=== PATIENT | male | born 1965 | race Hispanic/Latino ===

== ENCOUNTER 2017-05-27 09:41 | Emergency (ER) | payer OTHER, BC ==
[2017-05-27 09:41] VITALS: BMI 24.4
[2017-05-27 09:54] VITALS: BP 158/105; PULSE 66; RESP 18; TEMP 98.5; O2SAT 100
--- NOTE | 2017-05-27 10:59 | C.PDOC ---
History Of Present Illness SP FALL ON 05/24 CO PERSIST R ELBOW PAIN, EXAC NECK PAIN X SEV DAYS. PS TRIPPED, FELL ONTO R HAND AND R ELBOW, R HIP. AMBUL WO DIFF THROUGHOUT WEEKEND. R ELBOW PAIN ONLY W DIRECT PRESSURE. NO ASSOC WEAK/NUMB. PS SHOWERING ON 05/25, FELT "SUDDEN PRESSURE" HEAD/NECK WHILE TOWELING. HO C5 HERNIA. PS HASNT HAD NECK PAIN EPISODE "IN A LONG TIME", PRIOR PARESTHESIA RUE. NOW W RECUR R HAND PARESTHESIA. REFERRED FROM PHYSICAL THERAPY FOR EVAL. EXAM NONTOXIC NARD HEENT ATRAUM NECK NO CSPINE TEND AROM WO DIFF EXT RUE NO PAIN W SUPINATION; FULL FLEX/EXT WO PAIN OR DIFF. REPRODUC PAIN W DIRECT PRESSURE TO ELBOW. R HAND AROM WO DIFF, ATRAUM NO FOCAL TEND. R WRIST AROM WO DIFF, NONTEND NEURO INTACT SKIN INTACT - HPI Time Seen by Provider: 05/27/17 10:32 Chief Complaint (Nursing): Back Pain History Per: Patient History/Exam Limitations: no limitations Onset/Duration Of Symptoms: Persistent Injury Occurred (Timing): Days Ago: Past Medical History Reviewed: Historical Data, Nursing Documentation, Vital Signs Vital Signs: Last Vital Signs Temp 98.5 F 05/27/17 09:50 Pulse 66 05/27/17 09:50 Resp 18 05/27/17 09:50 BP 158/105 H 05/27/17 09:50 Pulse Ox 100 05/27/17 13:29 - Medical History PMH: Kidney Stones Surgical History: Cholecystectomy Family History: States: No Known Family Hx - Social History Hx Tobacco Use: No Hx Alcohol Use: Yes Hx Substance Use: No - Immunization History Hx Tetanus Toxoid Vaccination: No Hx Influenza Vaccination: Yes Hx Pneumococcal Vaccination: No Review Of Systems Except As Marked, All Systems Reviewed And Found Negative. Constitutional: Negative for: Fever Musculoskeletal: Positive for: Neck Pain, Other ((+) right elbow pain) Neurological: Negative for: Weakness, Numbness Physical Exam - Physical Exam Appears: Non-toxic, No Acute Distress Skin: Warm, Dry Head: Atraumatic, Normacephalic Oral Mucosa: Moist Neck: Normal ROM (w/o difficulty), Other (No Cspine tenderness) Respiratory: Normal Breath Sounds Extremity: Other (RUE - no pain with supination, full flex/ext w/o pain or difficully, reproducible pain with direct pressure to elbow. Right hand AROM w/ o difficulty, ATRAUM no focal tenderness. Right wrist AROM w/o difficulty, non tender) Pulses: Left Radial: Normal, Right Radial: Normal Neurological/Psych: Oriented x3, Normal Speech, Normal Motor ED Course And Treatment O2 Sat by Pulse Oximetry: 100 (RA) Pulse Ox Interpretation: Normal - Other Rad X-Ray - Cervical Spine X-Ray: Viewed By Me Interpretation: PROCEDURE: Cervical Spine Radiographs. HISTORY: Posttraumatic pain. COMPARISON: None. FINDINGS: BONES: Reversal of the anatomic lordosis with kyphosis, mild. DISC SPACES: Degenerative changes primarily disc space narrowing and non marginal osteophyte formation C5-6 and C6 -7. Uncovertebral hypertrophy at these levels. SOFT TISSUES: Calcifications within the posterior longitudinal ligament. . No prevertebral soft tissue swelling. OTHER FINDINGS: None. IMPRESSION: No acute findings related to/ accounting for the clinical presentation. Additional benign and/or incidental findings described above. . Concordant results with the preliminary interpretation rendered by the emergency department physician\\PA at the conclusion of the procedure. X-Ray - Right Elbow X-Ray: Viewed By Me, Read By Radiologist Interpretation: PROCEDURE: Radiographs of the right elbow. HISTORY: TRAUMA. COMPARISON: No prior. FINDINGS: BONES: Normal. No fracture. JOINTS: Normal. No osteoarthritis. SOFT TISSUES: Normal. JOINT EFFUSION: None. OTHER FINDINGS: None. IMPRESSION: Unremarkable radiographs of the right elbow. . Concordant results with the preliminary interpretation rendered by the emergency department physician\\PA at the conclusion of the procedure. - CT Scan/US CT - Cervical Spine Other Rad Studies (CT/US): Read By Radiologist, Radiology Report Reviewed CT/US Interpretation: CT cervical spine without IV contrast. Indication: Trauma. Comparison: None available. Technique: Axial computed tomography images were obtained of the cervical spine without the use of intravenous contrast. Coronal and sagittal reformatted images were created and reviewed. This CT exam was performed using 1 or more of the falling dose reduction techniques: Automated exposure control, adjustment of the MAA and/or kV according to patient size, and/or use of iterative reconstruction technique. Radiation dose: Total exam DLP = 451.92 MGy-cm. Findings: Straightening of the normal cervical lordosis may be related to muscle spasm or positioning. There is no evidence of acute fracture or subluxation. There is preserved alignment, vertebral body height, intervertebral disc spaces. The prevertebral soft tissues and spinolaminar lines appear intact. The lateral masses are preserved. The dens tip is intact. There is proper alignment of the lateral masses of C1 with the C2 vertebral body. Prominent lymph nodes throughout the neck, nonspecific. Included portions of the thyroid gland appear unremarkable. Included portions of lung apices appear clear. Impression: Straightening of the normal cervical lordosis may be related to muscle spasm or positioning. No evidence of acute fracture or subluxation. Prominent lymph nodes throughout the neck, nonspecific. Medical Decision Making Medical Decision Making: PLAN: * CT - Cervical Spine * X-Ray - Cervical Spine, Right Elbow * Decadron PO * Gabapentin PO * Tylenol PO Disposition Counseled Patient/Family Regarding: Studies Performed, Diagnosis, Need For Followup - Disposition Referrals: YOUR,PMD [Other] Disposition: HOME/ ROUTINE Disposition Time: 13:15 Condition: IMPROVED Prescriptions: Cyclobenzaprine [Flexeril] 10 mg PO TID #15 tab Gabapentin [Neurontin] 300 mg PO TID #30 cap Ibuprofen [Motrin] 600 mg PO Q6 #30 tab Instructions: Contusion in Adults (ED), Cervical Radiculopathy (ED) Forms: [employer] (Bulgarian), Work Excuse - Clinical Impression Clinical Impression: Cervical radiculopathy, Elbow contusion - Scribe Statement The provider has reviewed the documentation as recorded by the Juan Aibe Susie Brothers Provider Attestation: All medical record entries made by the Scribchelsi were at my direction and personally dictated by me. I have reviewed the chart and agree that the record accurately reflects my personal performance of the history, physical exam, medical decision making, and the department course for this patient. I have also personally directed, reviewed, and agree with the discharge instructions and disposition.
--- NOTE | 2017-05-27 13:10 | CT ---
CT cervical spine without IV contrast Indication: Trauma Comparison: None available. Technique: Axial computed tomography images were obtained of the cervical spine without the use of intravenous contrast. Coronal and sagittal reformatted images were created and reviewed. This CT exam was performed using 1 or more of the falling dose reduction techniques: Automated exposure control, adjustment of the MAA and/or kV according to patient size, and/or use of iterative reconstruction technique. Radiation dose: Total exam DLP = 451.92 MGy-cm. Findings: Straightening of the normal cervical lordosis may be related to muscle spasm or positioning. There is no evidence of acute fracture or subluxation. There is preserved alignment, vertebral body height, intervertebral disc spaces. The prevertebral soft tissues and spinolaminar lines appear intact. The lateral masses are preserved. The dens tip is intact. There is proper alignment of the lateral masses of C1 with the C2 vertebral body. Prominent lymph nodes throughout the neck, nonspecific. Included portions of the thyroid gland appear unremarkable. Included portions of lung apices appear clear. Impression: Straightening of the normal cervical lordosis may be related to muscle spasm or positioning. No evidence of acute fracture or subluxation. Prominent lymph nodes throughout the neck, nonspecific.
--- NOTE | 2017-05-27 13:55 | RAD ---
PROCEDURE: Cervical Spine Radiographs. HISTORY: Posttraumatic pain COMPARISON: None. FINDINGS: BONES: Reversal of the anatomic lordosis with kyphosis, mild. DISC SPACES: Degenerative changes primarily disc space narrowing and non marginal osteophyte formation C5-6 and C6-7. Uncovertebral hypertrophy at these levels. SOFT TISSUES: Calcifications within the posterior longitudinal ligament. . No prevertebral soft tissue swelling. OTHER FINDINGS: None. IMPRESSION: No acute findings related to/accounting for the clinical presentation. Additional benign and/or incidental findings described above. Concordant results with the preliminary interpretation rendered by the emergency department physician procedure.
--- NOTE | 2017-05-27 13:57 | RAD ---
PROCEDURE: Radiographs of the right elbow. HISTORY: TRAUMA COMPARISON: No prior. FINDINGS: BONES: Normal. No fracture. JOINTS: Normal. No osteoarthritis. SOFT TISSUES: Normal. JOINT EFFUSION: None. OTHER FINDINGS: None. IMPRESSION: Unremarkable radiographs of the right elbow. Concordant results with the preliminary interpretation rendered by the emergency department physician procedure.
== END 2017-05-27 13:29 | disposition home or self-care (01) ==
LOC: C.ER 09:41
DX: S50.01XA Contusion of right elbow, initial encounter (principal); W01.0XXA Fall on same level from slipping, tripping and stumbling without subsequent striking against object, initial encounter; M54.12 Radiculopathy, cervical region
CPT/HCPCS: 72040; 72125; 73080; 99283; J8540

== ENCOUNTER 2017-11-05 20:32 | Emergency (ER) | payer BC, OTHER ==
[2017-11-05 20:32] VITALS: BMI 24.4
[2017-11-05] MEDS ORDERED: Lactated Ringer's 1,000 ML IVB STA (21:24)
[2017-11-05] MEDS ORDERED: Lactated Ringer's 1,000 ML ONE (21:39)
[2017-11-05 21:41] LABS: BASO # 0.1 K/uL (0.0-0.2); BASO % 0.7 % (0.0-2.0); EOS # 0.5 K/uL (0.0-0.7); EOS % 6.3 % (0.0-4.0); HEMOGLOBIN 16.2 g/dL (12.0-18.0); LYMPH # 1.7 K/uL (1.0-4.3); LYMPH % 22.8 % (20.0-40.0); MEAN CELL VOLUME 86.3 fL (80.0-94.0); MEAN CORPUSCULAR HEMOGLOBIN 29.3 pg (27.0-31.0); MEAN CORPUSCULAR HGB CONC 33.9 g/dL (33.0-37.0); MEAN PLATELET VOLUME 8.1 fL (7.2-11.7); MONO # 0.8 K/uL (0.0-0.8); MONO % 10.4 % (0.0-10.0); NEUT # 4.3 K/uL (1.8-7.0); NEUT % 59.8 % (50.0-75.0); NRBC % 0.1 % (0.0-2.0); RBC 5.54 Mil/uL (4.40-5.90); RED CELL DISTRIBUTION WIDTH 13.9 % (11.5-14.5); WHITE BLOOD COUNT 7.3 K/uL (4.8-10.8)
[2017-11-05 21:49] LABS: URINE BILIRUBIN NEGATIVE (NEGATIVE); URINE BLOOD NEGATIVE (NEGATIVE); URINE CLARITY Clear (Clear); URINE COLOR Yellow (YELLOW); URINE GLUCOSE (UA) NORMAL (Normal); URINE LEUKOCYTE ESTERASE NEG Leu/uL (Negative); URINE PROTEIN NEGATIVE (NEGATIVE)
[2017-11-05 21:56] LABS: ALB/GLOB RATIO 1.2 (1.0-2.1); ALBUMIN 4.1 g/dL (3.5-5.0); ALT/SGPT 40 U/L (21-72); AST/SGOT 27 U/L (17-59); BLOOD UREA NITROGEN 18 mg/dL (9-20); CALCIUM 9.1 mg/dl (8.6-10.4); GFR AFRICAN-AMERICAN > 60; GFR NON-AFRICAN AMERICAN > 60; LIPASE 72 U/L (23-300)
[2017-11-05] MEDS ORDERED: Iohexol 300 100 ML IJ ONE (22:06)
--- NOTE | 2017-11-05 23:00 | C.PDOC ---
Time Seen by Provider: 11/05/17 21:06 Chief Complaint (Nursing): Abdominal Pain History Per: Patient Onset/Duration Of Symptoms: Days (2) Current Symptoms Are (Timing): Still Present Severity: Moderate Location Of Pain/Discomfort: Diffuse, RLQ Quality Of Discomfort: Unable To Describe, "Pain" Associated Symptoms: Fever, Diarrhea Exacerbating Factors: Food Alleviating Factors: None Last Bowel Movement: Today Recent travel outside of the [place]: No Additional History Per: Prior Records Past Medical History Reviewed: Historical Data, Nursing Documentation, Vital Signs Vital Signs: Last Vital Signs Temp 98.4 F 11/05/17 20:39 Pulse 83 11/05/17 20:39 Resp 20 11/05/17 20:39 BP 129/88 11/05/17 20:39 Pulse Ox 99 11/05/17 20:39 - Medical History PMH: Kidney Stones Surgical History: Cholecystectomy Family History: States: Unknown Family Hx - Social History Hx Tobacco Use: No Hx Alcohol Use: Yes Hx Substance Use: No - Immunization History Hx Tetanus Toxoid Vaccination: No Hx Influenza Vaccination: Yes Hx Pneumococcal Vaccination: No Review Of Systems Except As Marked, All Systems Reviewed And Found Negative. Constitutional: Positive for: Fever Cardiovascular: Negative for: Chest Pain Respiratory: Negative for: Shortness of Breath Gastrointestinal: Positive for: Abdominal Pain, Diarrhea. Negative for: Vomiting, Melena, Hematochezia, Hematemesis Genitourinary: Negative for: Dysuria, Scrotal Pain Musculoskeletal: Negative for: Neck Pain, Back Pain Skin: Negative for: Rash Neurological: Negative for: Weakness, Numbness Physical Exam - Physical Exam Appears: Non-toxic, No Acute Distress Skin: Normal Color, Warm, Dry, No Rash Head: Atraumatic, Normacephalic Eye(s): bilateral: PERRL, EOMI Oral Mucosa: Moist Neck: Normal ROM, Supple Cardiovascular: Rhythm Regular Respiratory: Normal Breath Sounds, No Accessory Muscle Use Gastrointestinal/Abdominal: Soft, Tenderness (mild nonspecific), No Guarding, No Rebound Back: No CVA Tenderness Extremity: Normal ROM Neurological/Psych: Oriented x3, Normal Motor, Normal Sensation ED Course And Treatment - Laboratory Results Result Diagrams: 11/05/17 21:29 11/05/17 21:29 Lab Interpretation: No Acute Changes O2 Sat by Pulse Oximetry: 99 Pulse Ox Interpretation: Normal - CT Scan/US CT abd/pelv Other Rad Studies (CT/US): Read By Radiologist, Radiology Report Reviewed CT/US Interpretation: Acute enteritis. No appendicitis. Progress - Interventions Interventions:: Observation, Intravenous fluid - Medications Administered Intravenous: NSAID - Data Reviewed Data Reviewed: Lab, Diagnostic imaging, Old records - Patient Status Patient status: Mostly improved - Continuity of Care Discussed patient case with:: Patient, ED Nurse - Patient Plan Patient Plan: Discharge, F/U with PCP, Continue present meds Disposition Counseled Patient/Family Regarding: Studies Performed, Diagnosis, Need For Followup, Rx Given - Disposition Referrals: Aly Ulrich MD [Staff Provider] - Disposition: HOME/ ROUTINE Disposition Time: 23:00 Condition: IMPROVED Additional Instructions: Drink plenty of fluids. Follow up with your doctor. Return to the ER if you develop vomiting, high fever, bloody stools, worsening of symptoms or if you have any other concerns. Prescriptions: Bismuth Subsalicylate [Pepto Bismol] 2 tab PO Q1 PRN #16 ctb PRN Reason: Diarrhea Instructions: Diarrhea in Adolescents and Adults Forms: [facility] (Sudanese), General Discharge Instructions - Clinical Impression Clinical Impression: Enteritis
[2017-11-05 23:35] VITALS: BP 124/75; PULSE 67; RESP 18; TEMP 97.7; O2SAT 98
--- NOTE | 2017-11-06 08:38 | CT ---
PROCEDURE: CT Abdomen and Pelvis with intravenous contrast HISTORY: Right lower quadrant pain. Diarrhea. COMPARISON: None. TECHNIQUE: Multiple contiguous axial images were performed through the abdomen and pelvis with use of intravenous contrast. Subsequently, sagittal and coronal reformatted images were obtained. Radiation dose: Total exam DLP = 651 mGy-cm. This CT exam was performed using one or more of the following dose reduction techniques: Automated exposure control, adjustment of the mA and/or kV according to patient size, and/or use of iterative reconstruction technique. FINDINGS: LOWER THORAX: Mild bibasilar atelectasis. LIVER: Diffuse decrease in hepatic parenchymal density consistent with fatty infiltration. GALLBLADDER AND BILE DUCTS: Cholecystectomy. PANCREAS: Unremarkable. No gross lesion or ductal dilatation. SPLEEN: Unremarkable. Splenule. ADRENALS: Unremarkable. No mass. KIDNEYS AND URETERS: Unremarkable. No hydronephrosis. No solid mass. Small left renal peripelvic cyst. VASCULATURE: Unremarkable. No aortic aneurysm. BOWEL: Mild diverticulosis present in the sigmoid and descending colon. Mildly dilated thick walled loops of fluid filled mid to distal small bowel in the right abdomen suggesting acute enteritis. APPENDIX: Unremarkable. Normal appendix. PERITONEUM: Unremarkable. No free fluid. No free air. LYMPH NODES: Unremarkable. No enlarged lymph nodes. BLADDER: Unremarkable. REPRODUCTIVE: Unremarkable. BONES: No acute fracture. OTHER FINDINGS: None. IMPRESSION: Findings concerning for acute enteritis. Clinical correlation. Additional findings as above. These findings were preliminarily reported at 10:50 p.m. on 11/05/[address] Aurea Flores from [facility].
== END 2017-11-05 23:35 | disposition home or self-care (01) ==
LOC: C.ER 20:32
DX: K52.9 Noninfective gastroenteritis and colitis, unspecified (principal)
CPT/HCPCS: 74177; 80053; 81001; 83690; 85025; 96374; 99284; J1885; J7120; Q9967

== ENCOUNTER 2018-08-13 21:47 | Observation (INO) | payer OTHER, BC ==
[2018-08-13 21:58] VITALS: BMI 27.1
[2018-08-13 22:13] LABS: BASO # 0.1 K/uL (0.0-0.2); BASO % 1.1 % (0.0-2.0); EOS # 0.3 K/uL (0.0-0.7); EOS % 3.4 % (0.0-4.0); HEMOGLOBIN 16.4 g/dL (12.0-18.0); LYMPH # 1.8 K/uL (1.0-4.3); LYMPH % 18.8 % (20.0-40.0); MEAN CORPUSCULAR HEMOGLOBIN 29.9 pg (27.0-31.0); MEAN PLATELET VOLUME 7.9 fL (7.2-11.7); MONO # 0.8 K/uL (0.0-0.8); MONO % 7.9 % (0.0-10.0); NEUT # 6.6 K/uL (1.8-7.0); NEUT % 68.8 % (50.0-75.0); NRBC % 0.1 % (0.0-2.0); RBC 5.48 Mil/uL (4.40-5.90); RED CELL DISTRIBUTION WIDTH 13.8 % (11.5-14.5); WHITE BLOOD COUNT 9.6 K/uL (4.8-10.8)
[2018-08-13] MEDS ORDERED: Sodium Chloride 0.9% 1,000 ML IV SCH ×2 (22:15→23:17)
[2018-08-13] MEDS ORDERED: Iodixanol 320 MG/ML 100 ML BOTTLE IV ONE (22:21)
[2018-08-13 22:23] LABS: INR 1.1; PROTHROMBIN TIME 11.9 SECONDS (9.7-12.2)
[2018-08-13 22:27] LABS: ALB/GLOB RATIO 1.4 (1.0-2.1); ALBUMIN 4.5 g/dL (3.5-5.0); ALT/SGPT 40 U/L (21-72); AST/SGOT 30 U/L (17-59); BLOOD UREA NITROGEN 16 mg/dL (9-20); CALCIUM 9.6 mg/dl (8.6-10.4); GFR NON-AFRICAN AMERICAN > 60; HDL CHOLESTEROL 38 mg/dL (30-70)
--- NOTE | 2018-08-13 22:36 | C.PDOC ---
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 No slurred speech, no weakness, no headache. Just did not feel right. Feels better now. No f/c/n/v Time Seen by Provider: 08/13/18 22:00 Chief Complaint (Nursing): Weakness/Neurological Deficit History Per: Patient History/Exam Limitations: no limitations Onset/Duration Of Symptoms: Hrs Current Symptoms Are (Timing): Better Activity At Onset Of Symptoms: Sitting Seizure Or Post-ictal Symptoms: None Fall Associated With With Symptoms: No Severity: Moderate Pain Scale Rating Of: 0 Recent travel outside of the [place]: No Past Medical History Reviewed: Historical Data, Nursing Documentation, Vital Signs Vital Signs: Last Vital Signs Temp 98.5 F 08/13/18 22:01 Pulse 86 08/13/18 22:01 Resp 22 08/13/18 22:01 BP 161/101 H 08/13/18 22:01 Pulse Ox 97 08/13/18 22:01 - Medical History PMH: Kidney Stones Surgical History: Cholecystectomy Family History: States: No Known Family Hx - Social History Hx Tobacco Use: No Hx Alcohol Use: Yes Hx Substance Use: No - Immunization History Hx Tetanus Toxoid Vaccination: No Hx Influenza Vaccination: Yes Hx Pneumococcal Vaccination: No Review Of Systems Constitutional: Negative for: Fever, Chills Eyes: Positive for: Vision Change ("scotomas) Cardiovascular: Negative for: Chest Pain Respiratory: Negative for: Shortness of Breath Gastrointestinal: Negative for: Abdominal Pain Genitourinary: Negative for: Dysuria Musculoskeletal: Negative for: Back Pain Skin: Negative for: Rash Neurological: Negative for: Weakness, Headache, Dizziness Psych: Negative for: Anxiety Physical Exam - Physical Exam Appears: Non-toxic, No Acute Distress Skin: Warm, Dry Head: Normacephalic Eye(s): bilateral: Normal Inspection, PERRL, EOMI Nose: Normal Oral Mucosa: Moist Neck: Trachea Midline, Supple Chest: Symmetrical Cardiovascular: Rhythm Regular Respiratory: No Rales, No Rhonchi, No Wheezing Gastrointestinal/Abdominal: Soft, No Tenderness, No Distention Back: No CVA Tenderness Extremity: Normal ROM Extremity: Bilateral: Atraumatic, No Pedal Edema, Normal Color And Temperature, Normal ROM Pulses: Left Dorsalis Pedis: Normal, Right Dorsalis Pedis: Normal Neurological/Psych: Oriented x3, Normal Speech, Normal Cognition, Normal Cranial Nerves, Normal Motor, Normal Sensation, Normal Reflexes, No Dysarthria, Other (neg nystagmus) Gait: Steady ED Course And Treatment - Laboratory Results Result Diagrams: 08/13/18 22:08 08/13/18 22:08 Lab Results: PT 11.9 SECONDS (9.7-12.2) 08/13/18 22:08 INR 1.1 08/13/18 22:08 APTT 31 SECONDS (21-34) 08/13/18 22:08 Total Bilirubin 1.0 mg/dL (0.2-1.3) 08/13/18 22:08 AST 30 U/L (17-59) 08/13/18 22:08 ALT 40 U/L (21-72) 08/13/18 22:08 Alkaline Phosphatase 56 U/L (38-126) 08/13/18 22:08 Total Protein 7.7 g/dL (6.3-8.3) 08/13/18 22:08 Albumin 4.5 g/dL (3.5-5.0) 08/13/18 22:08 Globulin 3.2 gm/dL (2.2-3.9) 08/13/18 22:08 Albumin/Globulin Ratio 1.4 (1.0-2.1) 08/13/18 22:08 ECG: Interpreted By Me, Viewed By Me ECG Rhythm: Sinus Rhythm, Nonspecific Changes O2 Sat by Pulse Oximetry: 97 Pulse Ox Interpretation: Normal - Radiology CXR: Interpreted by Me, Viewed By Me CXR Interpretation: Yes: Other (? rll infiltrate, left nipple ring). No: Infiltrates, Fracture, Pnemothorax Progress Note: 10:[address] Umanzor. no tpa. ok with asa and mri/mra in am Critical Care Time - Critical Care Note Total Time (in mins): 30 Documented critical care: time excludes all time spent performing seperately billable procedures. Disposition Discussed With : Aly Ulrich Comment: accepted the pt [facility] service and took over the care at 10:46 PM Doctor Will See Patient In The: Hospital Counseled Patient/Family Regarding: Studies Performed, Diagnosis - Disposition Disposition: HOSPITALIZED Disposition Time: 22:46 Condition: GUARDED Forms: [employer] (French) - POA Present On Arrival: None - Clinical Impression Clinical Impression: TIA (transient ischemic attack) Decision To Admit - Pt Status Changed To: Hospital Disposition Of: Observation - . Bed Request Type: Telemetry Admitting Physician: Aly Ulrich Patient Diagnosis: TIA (transient ischemic attack)
[2018-08-13 22:37] LABS: LDL CHOLESTEROL 116 mg/dL (0-129)
[2018-08-14 04:27] VITALS: RESP 20
--- NOTE | 2018-08-14 08:45 | CT ---
Date of service: 08/13/2018 PROCEDURE: CT HEAD WITHOUT CONTRAST. HISTORY: Code Stroke COMPARISON: None available. TECHNIQUE: Axial computed tomography images were obtained through the head/brain without intravenous contrast. Radiation dose: Total exam DLP = 1056.4 mGy-cm. This CT exam was performed using one or more of the following dose reduction techniques: Automated exposure control, adjustment of the mA and/or kV according to patient size, and/or use of iterative reconstruction technique. FINDINGS: HEMORRHAGE: No intracranial hemorrhage. BRAIN: No mass effect or edema. Scattered focal lucencies in the subcortical and periventricular white matter suggestive for chronic microvascular ischemic change. For example, confluent low attenuation seen within the left insular/external capsule region is demonstrated on series 4, image 20 and is suggestive for chronic ischemic change. VENTRICLES: Unremarkable. No hydrocephalus. CALVARIUM: Unremarkable. PARANASAL SINUSES: Moderate mucosal thickening of the ethmoid air cells. MASTOID AIR CELLS: Unremarkable as visualized. No inflammatory changes. OTHER FINDINGS: None. IMPRESSION: Confluent low attenuation seen within the left external capsule/insular region as demonstrated on series 4, image 20. This may represent chronic ischemic change. If there is concern for acute ischemic change, correlation with MRI would be helpful. Clinical correlation. Chronic microvascular ischemic changes. A preliminary report was generated at 10:21 p.m. on 08/13/[address] Cristobal Pandey from [facility]. This case was placed in the PA review folder.
[2018-08-14] MEDS ORDERED: Gadodiamide 287 mg/ml 20 ml IV ONE (10:22)
--- NOTE | 2018-08-14 10:57 | RAD ---
Chest x-ray single frontal view HISTORY: Code stroke. COMPARISON: None available. Findings: Elevated right hemidiaphragm. Mild venous congestion. Right hilar prominence. Upper lobe granulomatous changes. Cardiomegaly. Degenerative changes in the spine and shoulders. Impression: Elevated right hemidiaphragm. Mild venous congestion. Right hilar prominence. Cardiomegaly.
--- NOTE | 2018-08-14 13:23 | CT ---
Date of service: 08/13/2018 PROCEDURE: CT Angiography of the neck and brain with contrast HISTORY: Headache. COMPARISON: Comparison made with concurrent CT scan brain 08/13/2018 TECHNIQUE: Contiguous axial images of the neck and brain were obtained from the level of the vertex of the skull to the superior mediastinum in the arteriographic phase of enhancement. Coronal and sagittal reformats or also generated. IV contrast dose: 100 cc Visipaque 320 Radiation dose: Total exam DLP = 643.55 mGy-cm. This CT exam was performed using one or more of the following dose reduction techniques: Automated exposure control, adjustment of the mA and/or kV according to patient size, and/or use of iterative reconstruction technique. FINDINGS: The aortic arch and origins of the great vessels widely patent with no significant atherosclerotic plaque. The common carotid arteries and carotid bifurcations are also widely patent with no evidence of occlusion or dissection. No significant atherosclerotic disease or significant stenosis is identified. The distal internal carotid arteries including the petrous cavernous and supraclinoid segments also widely patent. The vertebral arteries are patent throughout left-sided which is slightly larger in caliber/more dominant than the right side. Basilar artery patent. The visualized major branches of the [id number] are patent. The distal branches of the anterior middle and posterior cerebral arteries are patent and relatively symmetric. No evidence of large aneurysm nor vascular malformation. OTHER FINDINGS: Multilevel degenerative spondylosis of the cervical spine. IMPRESSION: Normal CT Angiography of the neck.
--- NOTE | 2018-08-14 14:01 | MRI ---
Date of service: 08/14/2018 PROCEDURE: MRI BRAIN WITH AND WITHOUT CONTRAST HISTORY: CVA COMPARISON: Comparison made with prior CT scan and CTA brain 08/13/2018. TECHNIQUE: Multiplanar, multisequence MR images of the brain were obtained with and without intravenous contrast enhancement. FINDINGS: HEMORRHAGE: No acute parenchymal, subarachnoid or extra-axial hemorrhage. No evidence of hemosiderin deposition identified on gradient echo weighted sequence. DWI: No evidence of an acute or early subacute infarction seen on diffusion imaging.. BRAIN PARENCHYMA: There are a few tiny focal areas of increased T2 signal scattered about the subcortical white matter both cerebral hemispheres nonspecific. Findings could represent chronic sequela of small vessel disease however differential diagnosis would also include sequela of migraine headaches, old trauma post infectious/inflammatory etiologies. None of the changes exhibit contrast enhancement ENHANCEMENT: No enhancing parenchymal nor extra-axial masses or collections. No evidence of unusual meningeal enhancement. VENTRICLES: No obstructive hydrocephalus. CRANIUM: Unremarkable. ORBITS: Orbits and contents unremarkable. PARANASAL SINUSES/MASTOIDS: Clear VASCULAR SYSTEM: Visualized major vascular flow voids at skull base patent. OTHER FINDINGS: None . IMPRESSION: Unremarkable pre and post contrast enhanced MRI of the brain.
--- NOTE | 2018-08-14 14:48 | CP.PCM.CON ---
History of Present Illness - History of Present Illness History of Present Illness: Neurology Consultation Note: Consult requested by Dr. Ulrich Mr. 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 He was seeing triangle shapes, lights and black spots for about 15 minutes. These resolved spontaneously and while in the ED, he was asymptomatic. CT scan of the head was done and showed a possible area of hypodensity. However, MRI of the brain was subsequently done with and without contrast and was normal. CTA of the head /neck was also normal. The patient currently has no symptoms. Review of Systems - Constitutional Constitutional: As Per HPI - EENT Eyes: As Per HPI Ears: absent: As Per HPI, Decreased Hearing, Ear Discharge, Ear Pain, Tinnitus, Abnormal Hearing, Disequilibrium, Dizziness, Other Nose/Mouth/Throat: absent: As Per HPI, Epistaxis, Nasal Congestion, Nasal Discharge, Nasal Obstruction, Nasal Trauma, Nose Pain, Post Nasal Drip, Sinus Pain, Sinus Pressure, Bleeding Gums, Change in Voice, Dental Pain, Dry Mouth, Dysphagia, Halitosis, Hoarsness, Lip Swelling, Mouth Lesions, Mouth Pain, Odynophagia, Sore Throat, Throat Swelling, Tongue Swelling, Facial Pain, Neck Pain, Neck Mass, Other - Cardiovascular Cardiovascular: absent: As Per HPI, Acrocyanosis, Chest Pain, Chest Pain at Rest, Chest Pain with Activity, Claudication, Diaphoresis, Dyspnea, Dyspnea on Exertion, Edema, Irregular Heart Rhythm, Pain Radiating to Arm/Neck/Jaw, Leg Edema, Leg Ulcers, Lightheadedness, Orthopnea, Palpitations, Paroxysmal Nocturnal Dyspnea, Pedal Edema, Radiating Pain, Rapid Heart Rate, Slow Heart Rate, Syncope, Other - Respiratory Respiratory: absent: As Per HPI, Cough, Dyspnea, Hemoptysis, Dyspnea on Exertion, Wheezing, Snoring, Stridor, Pain on Inspiration, Chest Congestion, Excessive Mucous Production, Change in Mucous Color, Pain with Coughing, Other - Gastrointestinal Gastrointestinal: absent: As Per HPI, Abdominal Pain, Belching, Bloating, Change in Bowel Habits, Change in Stool Character, Coffee Ground Emesis, Constipation, Cramping, Diarrhea, Dyspepsia, Dysphagia, Early Satiety, Excessive Flatus, Fecal Incontinence, Heartburn, Hematemesis, Hematochezia, Loose Stools, Melena, Nausea, Odynophagia, Temesmus, Vomiting, Other - Genitourinary Genitourinary: absent: As Per HPI, Change in Urinary Stream, Difficulty Urinating, Dysuria, Flank Pain, Hematuria, Pyuria, Nocturia, Urinary Incontinence, Urinary Frequency, Urinary Hesitance, Urinary Urgency, Voiding Freq/Small Amts, Freq UTI, Hx Renal/Bladder Calculi, Hx /Renal Surgery, Bladder Distension, Other - Musculoskeletal Musculoskeletal: absent: As Per HPI, Abnormal Gait, Arthralgias, Atrophy, Back Pain, Deformity, Joint Swelling, Limited Range of Motion, Loss of Height, Muscle Cramps, Muscle Weakness, Myalgias, Neck Pain, Numbness, Radiating Pain into Limb, Stiffness, Tingling, Other - Integumentary Integumentary: absent: As Per HPI, Acne, Alopecia, Bleeding Lesions, Change in Hair, Change in Nails, Change in Pigmentation, Changing Lesions, Dry Skin, Erythema, Furuncle, Hirsutism, Lesions, New Lesions, Non-Healing Lesions, Photosensitivity, Pruritus, Rash, Skin Pain, Skin Ulcer, Sores, Striae, Swelling, Unusual Bruising, Wounds, Jaundice, Other - Neurological Neurological: As Per HPI - Psychiatric Psychiatric: absent: As Per HPI, Abnormal Sleep Pattern, Anhedonia, Anxiety, Auditory Hallucinations, Behavioral Changes, Change in Appetite, Change in Libido, Confusion, Depression, Difficulty Concentrating, Hallucinations, Homicidal Ideation, Hopelessness, Irritability, Memory Loss, Mood Swings, Panic Attacks, Paranoia, Suicidal Ideation, Visual Hallucinations, Tactile Hallucinations, Other - Endocrine Endocrine: absent: As Per HPI, Change in Body Appearance, Change in Libido, Cold Intolorance, Deepening of Voice, Excessive Sweating, Fatigue, Flushing, Heat Intolorance, Increase in Ring/Shoe/Hat Size, Palpitations, Polydipsia, Polyphagia, Polyuria, Other - Hematologic/Lymphatic Hematologic: absent: As Per HPI, Easy Bleeding, Easy Bruising, Lymphadenopathy, Other Past Patient History - Past Social History Smoking Status: Never Smoked - RENAL Hx Kidney Stones: Yes - PSYCHIATRIC Hx Substance Use: No - SURGICAL HISTORY Hx Cholecystectomy: Yes - ANESTHESIA Hx Anesthesia: Yes Hx Anesthesia Reactions: No Hx Malignant Hyperthermia: No Meds Allergies/Adverse Reactions: Allergies Allergy/AdvReac Type Severity Reaction Status Date / Time No Known Allergies Allergy Verified 08/13/18 21:59 - Medications Medications: Current Medications Heparin Sodium (Porcine) (Heparin) 5,000 units SC Q8 [facility] Last Admin: 08/14/18 13:42 Dose: 5,000 units Sodium Chloride (Sodium Chloride 0.9%) 1,000 mls @ 50 mls/hr IV .Q20H [facility] Last Admin: 08/14/18 01:05 Dose: 50 mls/hr Pneumococcal Polyvalent Vaccine (Pneumovax 23 Vaccine) 0.5 ml IM .ONCE ONE Stop: 08/15/18 14:01 Physical Exam - Constitutional Appears: Well - Head Exam Head Exam: ATRAUMATIC, NORMAL INSPECTION, NORMOCEPHALIC - Eye Exam Eye Exam: EOMI, Normal appearance, PERRL Pupil Exam: NORMAL ACCOMODATION, PERRL - ENT Exam ENT Exam: Mucous Membranes Moist, Normal Exam - Neck Exam Neck exam: Positive for: Normal Inspection - Respiratory Exam Respiratory Exam: Clear to Auscultation Bilateral, NORMAL BREATHING PATTERN - Cardiovascular Exam Cardiovascular Exam: REGULAR RHYTHM - GI/Abdominal Exam GI & Abdominal Exam: Normal Bowel Sounds, Soft. absent: Tenderness - Extremities Exam Extremities exam: Positive for: normal inspection - Back Exam Back exam: NORMAL INSPECTION - Neurological Exam Neurological exam: Alert, CN II-XII Intact, Normal Gait, Oriented x3, Reflexes Normal - Psychiatric Exam Psychiatric exam: Normal Affect, Normal Mood - Skin Skin Exam: Dry, Intact, Normal Color, Warm Results - Vital Signs Recent Vital Signs: Last Vital Signs Temp 98.1 F 08/14/18 07:00 Pulse 68 08/14/18 07:00 Resp 20 08/14/18 07:00 BP 114/64 08/14/18 07:00 Pulse Ox 97 08/14/18 12:24 - Labs Result Diagrams: 08/13/18 22:08 08/13/18 22:08 Labs: Laboratory Results - last 24 hr 08/13/18 08/13/18 08/13/18 22:08 22:08 22:08 WBC 9.6 RBC 5.48 Hgb 16.4 Hct 48.2 MCV 88.0 MCH 29.9 MCHC 34.0 RDW 13.8 Plt Count 231 MPV 7.9 Neut % (Auto) 68.8 Lymph % (Auto) 18.8 L [place] % (Auto) 7.9 Eos % (Auto) 3.4 Baso % (Auto) 1.1 Neut # (Auto) 6.6 Lymph # (Auto) 1.8 [place] # (Auto) 0.8 Eos # (Auto) 0.3 Baso # (Auto) 0.1 PT 11.9 INR 1.1 APTT 31 Sodium 138 Potassium 3.9 Chloride 100 Carbon Dioxide 30 Anion Gap 12 BUN 16 Creatinine 1.2 Est GFR ( Amer) > 60 Est GFR (Non-Af Amer) > 60 POC Glucose (mg/dL) Random Glucose 105 Hemoglobin A1c Calcium 9.6 Total Bilirubin 1.0 AST 30 ALT 40 Alkaline Phosphatase 56 Troponin I < 0.0120 Total Protein 7.7 Albumin 4.5 Globulin 3.2 Albumin/Globulin Ratio 1.4 Triglycerides 334 H D Cholesterol 195 LDL Cholesterol Direct 116 HDL Cholesterol 38 Blood Type Antibody Screen 08/13/18 08/13/18 08/14/18 22:08 22:08 06:21 WBC RBC Hgb Hct MCV MCH MCHC RDW Plt Count MPV Neut % (Auto) Lymph % (Auto) [place] % (Auto) Eos % (Auto) Baso % (Auto) Neut # (Auto) Lymph # (Auto) [place] # (Auto) Eos # (Auto) Baso # (Auto) PT INR APTT Sodium Potassium Chloride Carbon Dioxide Anion Gap BUN Creatinine Est GFR ( Amer) Est GFR (Non-Af Amer) POC Glucose (mg/dL) 100 Random Glucose Hemoglobin A1c 6.5 Calcium Total Bilirubin AST ALT Alkaline Phosphatase Troponin I Total Protein Albumin Globulin Albumin/Globulin Ratio Triglycerides Cholesterol LDL Cholesterol Direct HDL Cholesterol Blood Type B POSITIVE Antibody Screen Negative 08/14/18 12:04 WBC RBC Hgb Hct MCV MCH MCHC RDW Plt Count MPV Neut % (Auto) Lymph % (Auto) [place] % (Auto) Eos % (Auto) Baso % (Auto) Neut # (Auto) Lymph # (Auto) [place] # (Auto) Eos # (Auto) Baso # (Auto) PT INR APTT Sodium Potassium Chloride Carbon Dioxide Anion Gap BUN Creatinine Est GFR ( Amer) Est GFR (Non-Af Amer) POC Glucose (mg/dL) 119 H Random Glucose Hemoglobin A1c Calcium Total Bilirubin AST ALT Alkaline Phosphatase Troponin I Total Protein Albumin Globulin Albumin/Globulin Ratio Triglycerides Cholesterol LDL Cholesterol Direct HDL Cholesterol Blood Type Antibody Screen Assessment & Plan (1) Visual changes Assessment and Plan: This may have been an ocular migraine, or due to other systemic causes. MRI of the brain is normal. There does not appear to be any underlying pathology. Outpatient neurology and ophthalmology evaluation is recommended. No further recommendations at this time. Thank you for this consultation. Status: Resolved
--- NOTE | 2018-08-14 17:35 | CP.PCM.HP ---
Past Patient History - Past Social History Smoking Status: Never Smoked - RENAL Hx Kidney Stones: Yes - PSYCHIATRIC Hx Substance Use: No - SURGICAL HISTORY Hx Cholecystectomy: Yes - ANESTHESIA Hx Anesthesia: Yes Hx Anesthesia Reactions: No Hx Malignant Hyperthermia: No Meds Allergies/Adverse Reactions: Allergies Allergy/AdvReac Type Severity Reaction Status Date / Time No Known Allergies Allergy Verified 08/13/18 21:59 Results - Vital Signs Recent Vital Signs: Last Vital Signs Temp 98.1 F 08/14/18 07:00 Pulse 68 08/14/18 07:00 Resp 20 08/14/18 07:00 BP 114/64 08/14/18 07:00 Pulse Ox 97 08/14/18 12:24 - Labs Result Diagrams: 08/13/18 22:08 08/13/18 22:08 Labs: Laboratory Results - last 24 hr 08/13/18 08/13/18 08/13/18 21:56 22:08 22:08 WBC 9.6 RBC 5.48 Hgb 16.4 Hct 48.2 MCV 88.0 MCH 29.9 MCHC 34.0 RDW 13.8 Plt Count 231 MPV 7.9 Neut % (Auto) 68.8 Lymph % (Auto) 18.8 L [place] % (Auto) 7.9 Eos % (Auto) 3.4 Baso % (Auto) 1.1 Neut # (Auto) 6.6 Lymph # (Auto) 1.8 [place] # (Auto) 0.8 Eos # (Auto) 0.3 Baso # (Auto) 0.1 PT 11.9 INR 1.1 APTT 31 Sodium Potassium Chloride Carbon Dioxide Anion Gap BUN Creatinine Est GFR ( Amer) Est GFR (Non-Af Amer) POC Glucose (mg/dL) 105 Random Glucose Hemoglobin A1c Calcium Total Bilirubin AST ALT Alkaline Phosphatase Troponin I Total Protein Albumin Globulin Albumin/Globulin Ratio Triglycerides Cholesterol LDL Cholesterol Direct HDL Cholesterol Blood Type Antibody Screen 08/13/18 08/13/18 08/13/18 22:08 22:08 22:08 WBC RBC Hgb Hct MCV MCH MCHC RDW Plt Count MPV Neut % (Auto) Lymph % (Auto) [place] % (Auto) Eos % (Auto) Baso % (Auto) Neut # (Auto) Lymph # (Auto) [place] # (Auto) Eos # (Auto) Baso # (Auto) PT INR APTT Sodium 138 Potassium 3.9 Chloride 100 Carbon Dioxide 30 Anion Gap 12 BUN 16 Creatinine 1.2 Est GFR ( Amer) > 60 Est GFR (Non-Af Amer) > 60 POC Glucose (mg/dL) Random Glucose 105 Hemoglobin A1c 6.5 Calcium 9.6 Total Bilirubin 1.0 AST 30 ALT 40 Alkaline Phosphatase 56 Troponin I < 0.0120 Total Protein 7.7 Albumin 4.5 Globulin 3.2 Albumin/Globulin Ratio 1.4 Triglycerides 334 H D Cholesterol 195 LDL Cholesterol Direct 116 HDL Cholesterol 38 Blood Type B POSITIVE Antibody Screen Negative 08/14/18 08/14/18 06:21 12:04 WBC RBC Hgb Hct MCV MCH MCHC RDW Plt Count MPV Neut % (Auto) Lymph % (Auto) [place] % (Auto) Eos % (Auto) Baso % (Auto) Neut # (Auto) Lymph # (Auto) [place] # (Auto) Eos # (Auto) Baso # (Auto) PT INR APTT Sodium Potassium Chloride Carbon Dioxide Anion Gap BUN Creatinine Est GFR ( Amer) Est GFR (Non-Af Amer) POC Glucose (mg/dL) 100 119 H Random Glucose Hemoglobin A1c Calcium Total Bilirubin AST ALT Alkaline Phosphatase Troponin I Total Protein Albumin Globulin Albumin/Globulin Ratio Triglycerides Cholesterol LDL Cholesterol Direct HDL Cholesterol Blood Type Antibody Screen
[2018-08-14 18:34] VITALS: BP 123/80; PULSE 70; TEMP 97.8; O2SAT 95
[2018-08-15] MEDS ORDERED: Pneumococcal 23-Valent Vaccine IM ONE (14:00)
== END 2018-08-14 18:47 | disposition home or self-care (01) ==
LOC: C.ER 21:47 → C.6T 22:41 → INTOOBSV 22:41
PROVIDERS: ADMIT Internal Medicine; ATTEND Internal Medicine
DX: R44.1 Visual hallucinations (principal)
CPT/HCPCS: 70450; 70496; 70498; 70553; 71045; 80053; 80061; 82948; 83036; 84484; 85025; 85610; 85730; 86850; 86900; 93005; A9579; G0378; J1644; J7030; Q9967

== ENCOUNTER 2018-09-26 07:48 | Outpatient (CLI) | payer OTHER | END 2018-09-26 07:49 | disposition home or self-care (01) | LOC: C.CARD 07:48 | DX: R06.02 Shortness of breath (principal); E78.2 Mixed hyperlipidemia ==